=== PATIENT | male | born 1965 | race Caucasian/White ===

== ENCOUNTER → 2024-10-02 | Outpatient (CLI) | payer SELFPAY ==
--- NOTE | 2024-10-02 23:13 | XR ---
EXAMINATION TYPE: XR hand complete bilateral, XR wrist complete BILATERAL DATE OF EXAM: 10/02/2024 4:29 PM COMPARISON: None CLINICAL INDICATION: Male, 59 years old with history of M79.64, M25.532, M25.531, M25.521, M25.522, M 79.67; PHH, pain TECHNIQUE: XR hand complete bilateral, XR wrist complete BILATERAL Hands were evaluated and 3 views. The risks were evaluated and 4 views FINDINGS: Right: Normal alignment of the visualized joints. Hooking/bony protuberance of the metacarpal heads most pro nounced on the third digit presumably congenital given symmetric appearance. No acute osseous pathol ogy is identified. No evidence of soft tissue swelling. Multifocal degeneration changes with joint s pace narrowing and osteophyte formation. Findings degeneration worse at the carpometacarpal joint and distal interphalangeal joints of the phalanges. Left: Normal alignment of the visualized joints. Hooking/bony protuberance of the metacarpal heads most pro nounced on the third digit presumably congenital given symmetric appearance. No acute osseous pathol ogy is identified. No evidence of soft tissue swelling. Multifocal degeneration changes with joint s pace narrowing and osteophyte formation. Findings degeneration worse at the carpometacarpal joint and distal interphalangeal joints of the phalanges. IMPRESSION: No acute osseous pathology. 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 Findings worse at the third digit joints bilaterally as well as the distal interphalangeal joints throughout the jose nds [facility], , 10/02/2024 11:11 PM
--- NOTE | 2024-10-02 23:14 | XR ---
EXAMINATION TYPE: XR elbow complete bilateral DATE OF EXAM: 10/02/2024 4:29 PM COMPARISON: None CLINICAL INDICATION: Male, 59 years old with history of M79.64, M25.532, M25.531, M25.521, M25.522, M 79.67; PHH, pain TECHNIQUE: XR elbow complete bilateral; elbow was examined in AP, lateral, and oblique projections. FINDINGS moderate to severe degeneration changes of the elbow bilaterally worse on the left with join t space narrowing and osteophyte formation. No evidence of any acute osseous pathology, joint disloca tion, or soft tissue swelling is noted. No evidence of joint effusion is present. IMPRESSION: 1. No evidence of acute fracture. 2. Moderate to severe degeneration changes of the joints of the course of the left elbow [facility], , 10/02/2024 11:12 PM
--- NOTE | 2024-10-02 23:17 | XR ---
EXAMINATION TYPE: XR foot complete bilateral, XR ankle complete bilateral DATE OF EXAM: 10/02/2024 4:29 PM COMPARISON: none CLINICAL INDICATION: Male, 59 years old with history of M79.64, M25.532, M25.531, M25.521, M25.522, M 79.67; H, pain TECHNIQUE: XR foot complete bilateral, XR ankle complete bilateral examined in the AP, oblique, and l ateral projections. FINDINGS: No evidence of any acute osseous pathology Calcaneal plantar spurring is present bilaterally. Multifo joselin degeneration changes throughout the joints of the foot with osteophyte formation and joint space narrowing. Bipartite medial sesamoid of the first digit on the right. Incidental note is made of symp halangism of the fifth distal interphalangeal joint bilaterally. IMPRESSION: 1. No evidence of acute fracture. 2. Mild degeneration changes throughout the joints of the the ankles. [facility], , 10/02/2024 11:15 PM
== END | disposition home or self-care (01) ==
LOC: RADXRMAIN 15:48
DX: M19.041 Primary osteoarthritis, right hand (principal); M19.042 Primary osteoarthritis, left hand; M19.022 Primary osteoarthritis, left elbow; M19.072 Primary osteoarthritis, left ankle and foot; M19.071 Primary osteoarthritis, right ankle and foot

== ENCOUNTER → 2024-10-03 | Outpatient (CLI) | payer SELFPAY ==
[2024-10-03 14:50] LABS: Basophils # (A) 0.07 X 10*3/uL (0.00-0.10); Basophils % (A) 1.3 %; Eosinophils % (A) 5.6 %; HCT 40.9 % (37.2-50.0); HGB 13.6 g/dL (12.0-17.0); Lymphocytes # (A) 1.73 X 10*3/uL (0.90-5.00); Lymphocytes % (A) 32.2 %; MCH 31.6 pg (27.0-32.0); MCHC 33.3 g/dL (32.0-37.0); MCV 94.9 FL (80.0-97.0); Mean Platelet Volume 11.2 FL (9.5-12.2); Monocytes # (A) 0.42 X 10*3/uL (0.20-1.00); Monocytes % (A) 7.8 %; NRBC Per 100 WBC 0 X 10*3/uL (0.00-0.01); Neutrophils # (A) 2.84 X 10*3/uL (1.80-7.70); Neutrophils % (A) 52.7 %; Platelet Count 318 X 10*3/uL (140-440); RBC 4.31 X 10*6/uL (4.10-5.60); RDW 15.9 % (11.5-14.5); WBC 5.38 X 10*3/uL (4.50-10.00)
[2024-10-03 15:16] LABS: Rheumatoid Factor, Qnt <15 IU/mL (0-15); Uric Acid 4.5 mg/dL (2.9-8.7)
[2024-10-03 16:06] LABS: Erythrocyte Sedimentation Rate 10 mm/Hr (0-30)
== END | disposition home or self-care (01) ==
LOC: LABWHC1 10:09
PROVIDERS: ATTEND Internal Medicine
DX: Z00.00 Encounter for general adult medical examination without abnormal findings (principal); M06.9 Rheumatoid arthritis, unspecified
CPT/HCPCS: 36415; 84550; 85025; 85652; 86431

== ENCOUNTER 2024-11-07 09:37 | Emergency (ER) | payer OTHER ==
[2024-11-07 09:44] VITALS: RESP 18; TEMP 97.9
--- NOTE | 2024-11-07 09:54 | ED ---
Chest Pain HPI - General Chief Complaint: Chest Pain Stated Complaint: chest pain Time Seen by Provider: 11/07/24 09:45 Source: patient, RN notes reviewed Mode of arrival: ambulatory Limitations: no limitations - History of Present Illness Initial Comments: This is a 59-year-old male with no reported medical conditions presenting to the emergency department for complaints of left-sided intermittent chest pain described as a pressure over the past month. Patient denies associated modifying or precipitating factors to the pain, states it will occur sometimes when he is at rest or other times when he is doing activities. He states that over the past 6 to 8 months he has been feeling fatigued with decrease in overall motivation for activities. He also states that he will experience intermittent shortness of breath with the chest pain. Pain will occasionally radiate to the left arm. Denies associated nausea, vomiting, diaphoresis. Denies history of hypertension, hyperlipidemia, diabetes. Endorses smoking history. Patient has a history of bradycardia and states that he was informed while he was a child that he may have to have a pacemaker placed when he is older. - Related Data Home Medications Medication Instructions Recorded Confirmed Mushroom Supplement 1 cap PO DAILY 11/07/24 11/07/24 Sertraline [Zoloft] 100 mg PO DAILY 11/07/24 11/07/24 Allergies Allergy/AdvReac Type Severity Reaction Status Date / Time No Known Allergies Allergy Verified 11/07/24 10:53 Review of Systems ROS Statement: Those systems with pertinent positive or pertinent negative responses have been documented in the HPI. ROS Other: All systems not noted in ROS Statement are negative. Past Medical History Past Medical History: No Reported History History of Any Multi-Drug Resistant Organisms: None Reported Past Surgical History: No Surgical Hx Reported Past Psychological History: Anxiety, Depression Smoking Status: Current every day smoker Past Alcohol Use History: Occasional Past Drug Use History: None Reported General Exam Limitations: no limitations ENT exam: Present: normal exam, mucous membranes moist Respiratory exam: Present: normal lung sounds bilaterally. Absent: respiratory distress, wheezes, rales, rhonchi, stridor Cardiovascular Exam: Present: regular rate, normal rhythm, normal heart sounds. Absent: systolic murmur, diastolic murmur, rubs, gallop, clicks GI/Abdominal exam: Present: soft, normal bowel sounds. Absent: distended, tenderness, guarding, rebound, rigid Extremities exam: Present: normal inspection, full ROM, normal capillary refill. Absent: tenderness, pedal edema, joint swelling, calf tenderness Back exam: Present: normal inspection Skin exam: Present: warm, dry, intact, normal color. Absent: rash Course Vital Signs 11/07/24 11/07/24 09:41 10:50 Temperature 97.9 F Pulse Rate 52 L 49 L Respiratory 18 18 Rate Blood Pressure 138/89 119/97 O2 Sat by Pulse 98 97 Oximetry Chest Pain MDM - MDM Was pt. sent in by a medical professional or institution (, PA, PSYCHOLOGICAL ASSISTANT, urgent care, hospital, or assisted...) When possible be specific @ -No Did you speak to anyone other than the patient for history (EMS, parent, family, police, friend...)? What history was obtained from this source @ -No Did you review nursing and triage notes (agree or disagree)? Why? @ -I reviewed and agree with nursing and triage notes Were old charts reviewed (outside hosp., previous admission, EMS record, old EKG, old radiological studies, urgent care reports/EKG's, assisted records)? Report findings @ -No old charts were reviewed Differential Diagnosis (chest pain, altered mental status, abdominal pain women, abdominal pain men, vaginal bleeding, weakness, fever, dyspnea, syncope, headache, dizziness, GI bleed, back pain, seizure, CVA, palpatations, mental health, musculoskeletal)? @ -Differential Chest Pain: Stable Angina, Unstable Angina, STEMI, NSTEMI Aortic Dissection, Pneumothorax, Musculoskeletal, Esophageal Spasm GERD, Cholecystitis, Pancreatitis, Zoster, this is not meant to be an all-inclusive list. EKG interpreted by me (3pts min.). @ -Completed at 951 reveals sinus bradycardia with a ventricular rate of 50, AL interval 207, QRS 89, QTc 355. X-rays interpreted by me (1pt min.). @ -chest xray no acute cardiopulmonary process or disease CT interpreted by me (1pt min.). @ -None done U/S interpreted by me (1pt. min.). @ -None done What testing was considered but not performed or refused? (CT, X-rays, U/S, labs)? Why? @ -None What meds were considered but not given or refused? Why? @ -None Did you discuss the management of the patient with other professionals (professionals i.e. , PA, PSYCHOLOGICAL ASSISTANT, lab, RT, psych nurse, hospital social worker, radio broadcaster, teacher, forest fire control officer, pillowcase turner)? Give summary @ -No Was smoking cessation discussed for >3mins.? @ -No Was critical care preformed (if so, how long)? @ -No Were there social determinants of health that impacted care today? How? (Homelessness, low income, unemployed, alcoholism, drug addiction, transportation, low edu. Level, literacy, decrease access to med. care, half-way, rehab)? @ -No Was there de-escalation of care discussed even if they declined (Discuss DNR or withdrawal of care, Hospice)? DNR status @ -No What co-morbidities impacted this encounter? (DM, HTN, Smoking, COPD, CAD, Cancer, CVA, ARF, Chemo, Hep., AIDS, mental health diagnosis, sleep apnea, morbid obesity)? @ -None Was patient admitted / discharged? Hospital course, mention meds given and rou te, prescriptions, significant lab abnormalities, going to OR and other pertinent info. @ -Discharge. 59-year-old male presenting to the emergency department for complaints of intermittent chest pain over the past month. EKG completed reveals sinus mechanism and bradycardia rate. Patient states that he has baseline bradycardia that has been chronic for him throughout his life. Laboratory test including CBC, CMP, troponin unremarkable. Chest x-ray no acute process. Patient has a heart score of 2 which is a low risk for major adverse cardiac events to occur within the next 6 weeks. Patient was offered admission however he has declined stating that he would like to follow-up outpatient with his primary care provider. Patient has verbalized risks of being discharged and again is requesting to follow-up outpatient. Recommend repeat troponin however patient has refused. Case has been discussed with Dr. Solares Undiagnosed new problem with uncertain prognosis? @ -No Drug Therapy requiring intensive monitoring for toxicity (Heparin, Nitro, Insulin, Cardizem)? @ -No Were any procedures done? @ -No Diagnosis/symptom? @ -chest pain, bradycardia, exertional dyspnea Acute, or Chronic, or Acute on Chronic? @ -acute Uncomplicated (without systemic symptoms) or Complicated (systemic symptoms)? @ -uncomplicated Side effects of treatment? @ -No Exacerbation, Progression, or Severe Exacerbation? @ -No Poses a threat to life or bodily function? How? (Chest pain, [place], [place], pneumonia, PE, COPD, DKA, ARF, appy, cholecystitis, CVA, Diverticulitis, Homicidal, Suicidal, threat to staff... and all critical care pts) @ -No Disposition Clinical Impression: Exertional dyspnea, Fatigue, Bradycardia, Chest pain Disposition: HOME SELF-CARE Condition: Good Instructions (If sedation given, give patient instructions): Bradycardia (ED) Additional Instructions: Please return to the Emergency Department if symptoms worsen or any other concerns. Please follow-up with your primary care provider within the next 24 to 48 hours for further evaluation. Is patient prescribed a controlled substance at d/c from ED?: No Referrals: Aidan Pablo MD [Primary Care Provider] - 1-2 days Time of Disposition: 11:31
[2024-11-07 10:23] LABS: Basophils # (A) 0.07 10*3/uL (0.00-0.10); Basophils % (A) 1.2 %; Eosinophils # (A) 0.24 10*3/uL (0.04-0.35); HCT 38.6 % (39.6-50.0); HGB 13.6 g/dL (13.0-17.0); Lymphocytes # (A) 1.87 10*3/uL (0.90-5.00); Lymphocytes % (A) 31.5 %; MCH 32.9 pg (27.0-32.0); MCHC 35.2 g/dL (32.0-37.0); MCV 93.5 fL (80.0-97.0); Mean Platelet Volume 9.8 fL (9.5-12.2); Monocytes % (A) 8.4 %; Neutrophils # (A) 3.24 10*3/uL (1.80-7.70); Neutrophils % (A) 54.7 %; Platelet Count 256 10*3/uL (140-440); RBC 4.13 10*6/uL (4.40-5.60); RDW 14.5 % (11.5-14.5); WBC 5.93 10*3/uL (4.50-10.00)
--- NOTE | 2024-11-07 10:34 | XR ---
EXAMINATION TYPE: XR chest 2V DATE OF EXAM: 11/07/2024 10:27 AM COMPARISON: None. CLINICAL INDICATION: Male, 59 years old with history of Chest Pain, short of breath TECHNIQUE: XR chest 2V view(s) obtained. FINDINGS: The heart size is normal. The pulmonary vasculature is normal. The lungs are clear. IMPRESSION: 1. No acute pulmonary process. [facility], , 11/07/2024 10:32 AM
[2024-11-07 10:46] LABS: ALT 21 U/L (4-49); AST 21 U/L (17-59); African American GFR (CKD) >90 (>60 ml/min/1.73 sqM); Albumin 4.2 g/dL (3.5-5.0); Alkaline Phosphatase 73 U/L (38-126); Anion Gap 9 mmol/L; Blood Urea Nitrogen 19 mg/dL (9-20); Calcium 9.8 mg/dL (8.4-10.2); Carbon Dioxide 23 mmol/L (22-30); Chloride 103 mmol/L (98-107); Glucose 95 mg/dL (74-99); Lipase 73 U/L (23-300); Magnesium 1.9 mg/dL (1.6-2.3); Non-African American GFR(CKD) >90 (>60 ml/min/1.73 sqM); Potassium 4.7 mmol/L (3.5-5.1); Sodium 135 mmol/L (137-145); Total Bilirubin 0.5 mg/dL (0.2-1.3); Total Protein 6.9 g/dL (6.3-8.2)
[2024-11-07 10:51] VITALS: BP 119/97; PULSE 49
[2024-11-07 10:52] LABS: INR 0.9 (<1.2); Partial Thromboplastin Time 30.1 sec (22.0-30.0); Prothrombin Time 10.5 sec (10.0-12.5)
== END 2024-11-07 11:40 | disposition home or self-care (01) ==
LOC: EC 09:37
DX: R07.9 Chest pain, unspecified (principal); R00.1 Bradycardia, unspecified; R06.09 Other forms of dyspnea; R53.83 Other fatigue; F17.200 Nicotine dependence, unspecified, uncomplicated
CPT/HCPCS: 36415; 71046; 80053; 83690; 83735; 84443; 84484; 85025; 85610; 85730; 93005; 99285